=== PATIENT | female | born 1980 | race Caucasian/White ===

== ENCOUNTER 2018-01-17 17:38 | Emergency (ER) | payer MEDICAID ==
[~2018-01-17] VITALS: Ht 162.6 cm; Wt 95.9 kg
[2018-01-17 17:41] VITALS: Ht 162.6 cm; Wt 95.9 kg
[2018-01-17] MEDS ORDERED: PROPRANOLOL HCL20 MG PO (17:42)
[2018-01-17] MEDS ORDERED: ABILIFY10 MG PO (17:42)
[2018-01-17 19:59] VITALS: BP 132/58
== END 2018-01-17 19:59 | disposition home or self-care (01) ==
LOC: D.ER 17:38
DX: S80.01XA Contusion of right knee, initial encounter (principal); W18.30XA Fall on same level, unspecified, initial encounter; Y93.89 Activity, other specified; Y92.89 Other specified places as the place of occurrence of the external cause; F17.200 Nicotine dependence, unspecified, uncomplicated